=== PATIENT | female | born 1985 | race Caucasian/White ===

== ENCOUNTER 2016-06-05 19:54 | Emergency (ER) | payer OTHER ==
[~2016-06-05] VITALS: Ht 157.5 cm; Wt 55.8 kg
[2016-06-05 19:55] VITALS: BP 118/81
[2016-06-05] MEDS ORDERED: IBUPROFEN 600 MG TABLET PO ONE ×2 (20:30→20:40)
--- NOTE | 2016-06-05 21:27 | NUR ---
CALLED NEAL FOR READ
== END 2016-06-05 22:09 | disposition home or self-care (01) ==
LOC: ER 19:56
DX: S52.121A Displaced fracture of head of right radius, initial encounter for closed fracture (principal); S50.01XA Contusion of right elbow, initial encounter; Y99.8 Other external cause status; V00.131A Fall from skateboard, initial encounter; Y93.89 Activity, other specified; Y92.89 Other specified places as the place of occurrence of the external cause
CPT/HCPCS: 29105; 73080; 73090; 99284; A4606; Z7610